=== PATIENT | male | born 1985 | race Caucasian/White ===

== ENCOUNTER 2024-05-03 18:44 | Emergency (ER) | payer BC ==
[~2024-05-03] VITALS: Ht 185.4 cm; Wt 105.5 kg
[2024-05-03] MEDS ORDERED: NORVASC 5MG5 MG/TAB PO (18:54)
[2024-05-03 20:47] VITALS: BP 162/116
== END 2024-05-03 20:48 | disposition home or self-care (01) ==
LOC: ED 18:44
DX: R09.A2 Foreign body sensation, throat (principal)